=== PATIENT | female | born 1995 ===

== ENCOUNTER 2023-03-14 15:03 | Outpatient (REF) | payer OTHER, SELFPAY ==
[2023-03-14 17:20] LABS: Alanine Aminotransferase 19 U/L (0-31); Albumin Level 4.1 g/dL (3.5-5.0); Alkaline Phosphatase 82 U/L (39-117); Anion Gap 12 (12-20); Aspartate Amino Transferase 16 U/L (5-31); Bilirubin Total 0.2 mg/dL (0.0-1.0); Blood Urea Nitrogen 10 mg/dL (9-16); Calcium 9.3 mg/dL (8.4-10.2); Carbon Dioxide 25 mmol/L (22-29); Chloride 107 mmol/L (96-108); Cholesterol 162 mg/dL; Estimated Glomerular Filt Rate > 60; Glucose Random 88 mg/dL (60-115); HDL Cholesterol 49 mg/dL; LDL Cholesterol Calculated 93 mg/dl; Potassium 3.7 mmol/L (3.3-5.1); Sodium 140 mmol/L (135-145); Total Protein 7.6 g/dL (6.5-8.0); Triglycerides 102 mg/dL
[2023-03-14 17:22] LABS: Thyroid Stimulating Hormone 1.53 uIU/mL (0.32-4.0)
== END 2023-03-14 15:04 | disposition home or self-care (01) ==
LOC: HO.HHCL 15:03
PROVIDERS: Visit Provider Nurse Practitioner Family
DX: Z00.00 Encounter for general adult medical examination without abnormal findings (principal)
CPT/HCPCS: 36415; 80053; 80061; 84443

== ENCOUNTER 2023-06-18 13:43 | Outpatient (REF) | payer OTHER, SELFPAY ==
[2023-06-18 16:35] LABS: HCG Quantitative < 2 mIU/mL
[2023-06-19 07:24] LABS: Prolactin 12.3 ng/mL
[2023-06-22 14:08] LABS: Testosterone-Albumin 4.2 g/dL (3.6-5.1); Testosterone-Bioavailable 20.9 ng/dL (0.5-8.5); Testosterone-Free 10.9 pg/mL (0.2-5.0); Testosterone-SHBG 11 nmol/L (17-124); Testosterone-Total 44 ng/dL (2-45)
[2023-06-23 05:14] LABS: C. trachomatis RNA TMA NOT DETECTED (NOT DETECTED); N. gonorrhoeae RNA TMA NOT DETECTED (NOT DETECTED); Trichomonas (NAAT) NOT DETECTED (NOT DETECTED)
== END 2023-06-18 13:44 | disposition home or self-care (01) ==
LOC: HO.HHCL 13:43
PROVIDERS: Visit Provider Advanced Practice Midwife
DX: N92.6 Irregular menstruation, unspecified (principal); Z12.4 Encounter for screening for malignant neoplasm of cervix; Z11.3 Encounter for screening for infections with a predominantly sexual mode of transmission
CPT/HCPCS: 36415; 84146; 84403; 84702; 87491; 87591; 87661; 88142